=== PATIENT | male | born 1985 | race Caucasian/White ===

== ENCOUNTER 2020-09-17 22:58 | Inpatient (IN) | payer OTHER ==
[~2020-09-17] VITALS: Ht 180.3 cm; Wt 113.4 kg
[2020-09-18 01:26] LABS: BASOPHILS % 0.4 % (0.0-2.0); EOSINOPHILS % 0.9 % (0.0-5.0); HEMATOCRIT. 43.6 % (42.0-52.0); HEMOGLOBIN. 15.2 g/dL (14.0-18.0); MEAN CORPUSCULAR HEMOGLOBIN 29.4 pg (28.0-32.0); MEAN CORPUSCULAR VOLUME 84.3 fL (80.0-94.0); MONOCYTES % 8.4 % (2.0-8.0); NEUTROPHILS % 67.3 % (40.0-76.0); PLATELET 239 x1000/uL (130-400); RED BLOOD CELL COUNT 5.18 mill/uL (4.7-6.1); RED CELL DISTRIBUTION WIDTH 13.6 % (11.6-14.6)
[2020-09-18 01:28] LABS: CHLORIDE 114 mEq/L (98-107)
[2020-09-18 03:20] LABS: ETHANOL BLOOD < 10 mg/dL
[2020-09-18 05:21] LABS: *AMPHETAMINES SCREEN URINE NEGATIVE (NEGATIVE); *BARBITURATES SCREEN URINE NEGATIVE (NEGATIVE); *BENZODIAZEPINES SCREEN URINE NEGATIVE (NEGATIVE); *COCAINE SCREEN URINE NEGATIVE (NEGATIVE); METHADONE URINE SCREEN NEGATIVE (NEGATIVE)
[2020-09-18 05:22] LABS: CANNABINOID URINE SCREEN PRESUMTIVE POSITIVE (NEGATIVE); OPIATES URINE SCREEN NEGATIVE (NEGATIVE); PHENCYCLIDINE URINE SCREEN NEGATIVE (NEGATIVE)
[2020-09-18] MEDS ORDERED: ONDANSETRON HCL 4MG/2ML INJ IV PRN (09:30)
[2020-09-18] MEDS ORDERED: ACETAMINOPHEN 325MG TABLET PO PRN (09:30)
[2020-09-18 10:00] VITALS: BP 135/87
[2020-09-18 10:30] VITALS: BP 131/87
[2020-09-18 12:00] VITALS: BP 116/77
[2020-09-18] MEDS ORDERED: BUPR8TAB3 SL (12:02)
[2020-09-18] MEDS ORDERED: ENOXAPARIN 120MG/0.8ML SYR SUBCUT NR (14:00)
[2020-09-18 16:00] VITALS: BP 125/78
[2020-09-18 16:41] VITALS: BP 124/82
[2020-09-18] MEDS ORDERED: METOPROLOL TARTRATE 25MG TABLET PO SCH (21:00)
[2020-09-19] MEDS ORDERED: ENOXAPARIN 120MG/0.8ML SYR SUBCUT SCH
== END 2020-09-18 18:00 | disposition home or self-care (01) | DRG 201 ==
LOC: ER 22:58 → 6WST 09-18 03:19 → ENRESERV 09-18 07:30 → ER 09-18 08:27
PROVIDERS: ADMIT Internal Medicine; ATTEND Internal Medicine
DX: I48.91 Unspecified atrial fibrillation (principal); F41.9 Anxiety disorder, unspecified; F12.90 Cannabis use, unspecified, uncomplicated; E87.8 Other disorders of electrolyte and fluid balance, not elsewhere classified; E66.9 Obesity, unspecified; F10.10 Alcohol abuse, uncomplicated; Y90.9 Presence of alcohol in blood, level not specified; Z68.34 Body mass index [BMI] 34.0-34.9, adult; Z87.891 Personal history of nicotine dependence
CPT/HCPCS: 36415; 71045; 80053; 80305; 80320; 84443; 84484; 85025; 93005; 93306; 99291; J1650; G0480

== ENCOUNTER 2022-08-08 21:19 | Emergency (ER) | payer MEDICAID, OTHER ==
[~2022-08-08] VITALS: Ht 180.3 cm; Wt 127.0 kg
[~2022-08-08 21:19] MED LIST: BUPR8TAB3 SL
[2022-08-08] MEDS ORDERED: ACETAMINOPHEN 325MG TABLET PO STA (23:15)
[2022-08-08] MEDS ORDERED: SODIUM CHLORIDE 0.9% 1,000 ML IV ONE (23:15)
[2022-08-08] MEDS ORDERED: ONDANSETRON HCL 4MG/2ML INJ IV STA (23:15)
[2022-08-08] MEDS ORDERED: MAGNESIUM/ALUMINUM HYDROXIDE/SIMETHICONE 30ML UDC PO STA (23:15)
[2022-08-09 00:21] LABS: HEMATOCRIT. 47.4 % (42.0-52.0); HEMOGLOBIN. 16.8 g/dL (14.0-18.0); MEAN CORPUSCULAR VOLUME 84.6 fL (80.0-94.0); PLATELET 312 x1000/uL (130-400); RED CELL DISTRIBUTION WIDTH 13.5 % (11.6-14.6)
[2022-08-09 00:29] LABS: CHLORIDE 103 mEq/L (98-107)
[2022-08-09 00:42] LABS: CLARITY URINE CLEAR (CLEAR); COLOR URINE YELLOW (YELLOW); KETONES URINE 1+ (NEGATIVE); LEUKOCYTE ESTERASE URINE NEGATIVE (NEGATIVE); NITRITE URINE NEGATIVE (NEGATIVE); OCCULT BLOOD URINE NEGATIVE (NEGATIVE); PH URINE 5.5 (4.5-8.0); PROTEIN URINE TRACE (NEGATIVE); UROBILINOGEN URINE 0.2 E.U./dL (0.2-1.0)
[2022-08-09] MEDS ORDERED: ACET-2708 PO (01:20)
[2022-08-09] MEDS ORDERED: BISM-77 PO (01:20)
[2022-08-09] MEDS ORDERED: POTASSIUM CHLORIDE 20MEQ TABLET SR PO NR (01:30)
[2022-08-09 01:43] VITALS: BP 130/74
[2022-08-09 04:20] LABS: PLATELET ESTIMATE NORMAL
== END 2022-08-09 01:44 | disposition home or self-care (01) ==
LOC: ER 21:19
DX: K52.9 Noninfective gastroenteritis and colitis, unspecified (principal); E87.6 Hypokalemia; I48.91 Unspecified atrial fibrillation; Z79.01 Long term (current) use of anticoagulants
CPT/HCPCS: 36415; 80053; 81003; 83690; 85025; 96361; 96374; 99284; J2405; J7030

== ENCOUNTER 2022-12-03 08:42 | Emergency (ER) | payer MEDICAID ==
[~2022-12-03] VITALS: Ht 180.3 cm; Wt 127.0 kg
[~2022-12-03 08:42] MED LIST changes: +ACET-2708 PO; +BISM-77 PO
[2022-12-03 09:30] VITALS: BP 155/99
[2022-12-03 16:03] LABS: CLARITY URINE TURBID (CLEAR); COLOR URINE DARK YELLOW (YELLOW); KETONES URINE TRACE (NEGATIVE); LEUKOCYTE ESTERASE URINE NEGATIVE (NEGATIVE); NITRITE URINE NEGATIVE (NEGATIVE); OCCULT BLOOD URINE NEGATIVE (NEGATIVE); PH URINE 5.5 (4.5-8.0); PROTEIN URINE NEGATIVE (NEGATIVE); SPECIFIC GRAVITY URINE 1.028 (1.005-1.030); UROBILINOGEN URINE 0.2 E.U./dL (0.2-1.0)
[2022-12-03] MEDS ORDERED: DOXY100T2 MT (17:04)
[2022-12-03] MEDS ORDERED: CEFTRIAXONE SODIUM 250 MG/VIAL IM ONE (17:15)
== END 2022-12-03 18:52 | disposition home or self-care (01) ==
LOC: ER 08:42
DX: S37.8 Injury of other urinary and pelvic organs (principal); N41.8 Other inflammatory diseases of prostate; I10 Essential (primary) hypertension; F41.9 Anxiety disorder, unspecified; I48.91 Unspecified atrial fibrillation; Z79.01 Long term (current) use of anticoagulants; F12.10 Cannabis abuse, uncomplicated; F11.10 Opioid abuse, uncomplicated; X50.3XXA Overexertion from repetitive movements, initial encounter; Y93.89 Activity, other specified; Y92.018 Other place in single-family (private) house as the place of occurrence of the external cause
CPT/HCPCS: 81003; 96372; 99283; J0696